=== PATIENT | male | born 1950 | race Caucasian/White ===

== ENCOUNTER 2017-06-09 05:33 | Outpatient (CLI) | payer MEDICARE ==
[~2017-06-09] VITALS: Ht 182.9 cm; Wt 118.4 kg
[~2017-06-09 05:33] MED LIST: ACHD5005 PO; ASPI-586 PO; HYDR1TAB PO; LEVO100T7 PO; LISI10TA2 PO; MULT-963 PO; ROSU10TA26 PO; UBID30CA13 PO; VITA100T6 PO
[2017-06-09] MEDS ORDERED: UBID30CA9 PO (14:32)
== END 2017-06-09 14:36 ==
LOC: PREOP 05:33
PROVIDERS: ATTEND Surgery
DX: Z01.818 Encounter for other preprocedural examination (principal); K21.9 Gastro-esophageal reflux disease without esophagitis

== ENCOUNTER 2017-07-28 05:54 | Outpatient (CLI) | payer MEDICARE ==
[~2017-07-28] VITALS: Ht 182.9 cm; Wt 118.4 kg
[~2017-07-28 05:54] MED LIST changes: +UBID30CA9 PO
[2017-07-28] MEDS ORDERED: LISI-552 PO (11:38)
[2017-07-28] MEDS ORDERED: GINK120C PO (11:38)
[2017-07-28] MEDS ORDERED: NF-ESOM40C PO (11:40)
== END 2017-07-28 11:41 ==
LOC: PREOP 05:54
PROVIDERS: ATTEND Surgery
DX: Z01.818 Encounter for other preprocedural examination (principal); K21.9 Gastro-esophageal reflux disease without esophagitis

== ENCOUNTER 2017-08-25 07:29 | Day surgery (SDC) | payer MEDICARE ==
[~2017-08-25] VITALS: Ht 182.9 cm; Wt 118.4 kg
[~2017-08-25 07:29] MED LIST changes: +GINK120C PO; +LISI-552 PO; +NF-ESOM40C PO
--- OUTSIDE RECORDS SUMMARY | 2017-08-25 07:32 | XMS REPORT ---
Author NURY Stein Organization [employer] Address Unknown Phone Unavailable Care Team Providers Care Lamp Wirer Name Role Phone NURY CHRISTOPHER CP Unavailable Allergies, Adverse Reactions, Alerts Substance Reaction Event Type N.K.D.A. Info Not Available Non Drug Allergy Problems Problem Type Condition Code Onset Dates Condition Status Problem Cerumen impaction H61.20 Active Problem ZOSTAVAX DX V05.8 Active Problem HTN (hypertension) I10 Active Assessment Hypothyroid E03.9 Active Assessment Hyperlipemia E78.5 Active Assessment HTN (hypertension) I10 Active Assessment Cerumen impaction H61.20 Active Medications Medication Code System Code Instructions Start Date End Date Status Dosage Lisinopril [facility] [address]-64 10 mg Orally Once a day August 04, [address] [facility] [address]-28 10 mg Orally Once a day August 08, [address] [facility] [address]-66 100 MCG Orally Once a day August 08, [address] [facility] 436[address]048 10 MG Orally Once a day 1 capsule with a meal Claritin [facility] [address]-48 10 MG Orally Once a day [address] [facility] [address]-05 6.5 % Otic at bedtime daily August 04, [address] [facility] [address]-33 81 MG Orally Once a day 1 tablet Procedures Procedure Coding System Code Date Office Visit, Est Pt., Level 4 CPT-4 10818 August 21, 2015 [facility] VISIT ESTABLISHED PATIENT CPT-4 G0467 August 21, 2015 Vital Signs Date/Time: August 21, 2015 Temperature 97.9 F Weight 261.0 lbs Height 72 in BMI 35.39 Index Blood Pressure Diastolic 85 mmHg Blood Pressure Systolic 155 mmHg Cardiac Monitoring Heart Rate 72 bpm Results No Known Results Summary Purpose [employer] Submission
--- OUTSIDE RECORDS SUMMARY | 2017-08-25 07:32 | XMS REPORT ---
Author Author DARIO COSTELLO [facility] Address [address] [place] [address] Care Team Providers Care Whanau Support Worker Name Role Phone DARIO COSTELLO Unavailable PROBLEMS Type Condition ICD9-CM Code [id number] Code Onset Dates Condition Status SNOMED Code Assessment Abdominal pain, left lower quadrant R10.32 Feb, Active 344556154 Problem Acquired hypothyroidism E03.9 Active 109193677 Problem Hyperlipemia E78.5 Active 56866937 Problem Wellness examination Z00.00 Active 770048945 Problem ZOSTAVAX DX V05.8 Active 99534584 Problem HTN (hypertension) I10 Active 95042313 Problem Cerumen impaction H61.20 Active 22573360 ALLERGIES Substance Reaction Event Type Date Status N.K.D.A. Unknown Non Drug Allergy Feb, Unknown SOCIAL HISTORY No smoking Hx information available PLAN OF CARE VITAL SIGNS Height 72 in 2016-03-20 Weight 257.3 lbs 2016-03-20 Heart Rate 72 bpm 2016-03-20 Respiratory Rate 18 2016-03-20 BMI 34.89 kg/m2 2016-03-20 Blood pressure systolic 138 mmHg 2016-03-20 Blood pressure diastolic 82 mmHg 2016-03-20 MEDICATIONS Medication Instructions Dosage Frequency Start Date End Date Duration Status Aspirin 81 MG Orally Once a day 1 tablet 24h Active Claritin 10 MG Orally Once a day 1 tablet 24h Active Crestor 10 mg Orally Once a day 1 tablet 24h 12 Jul, 2015 Active CoQ10 10 MG Orally Once a day 1 capsule with a meal 24h Active Cipro 500 MG Orally Twice a day 1 tablet 12h Feb, Mar, 10 day(s) Active Lisinopril 10 mg Orally Once a day 1 tablet 24h 30 Active Levothyroxine Sodium 100 MCG Orally Once a day 1 tablet 24h 12 Jul, 2015 Active RESULTS No Results PROCEDURES Procedure Date Ordered Related Diagnosis Body Site [facility] VISIT ESTABLISHED PATIENT Mar 20, 2016 Office Visit, Est Pt., Level 3 Mar 20, 2016 IMMUNIZATIONS No Known Immunizations
--- OUTSIDE RECORDS SUMMARY | 2017-08-25 07:32 | XMS REPORT ---
Author Author NURY CHRISTOPHER Organization [facility] Address [address] [place] [address] Care Team Providers Care Aircraft Pneudraulic Systems Mechanic Name Role Phone NURY CHRISTOPHER Unavailable PROBLEMS Type Condition ICD9-CM Code [id number] Code Onset Dates Condition Status SNOMED Code Problem Acquired hypothyroidism E03.9 Active 189776943 Problem Hyperlipemia E78.5 Active 52315266 Problem HTN (hypertension) I10 Active 85310563 Problem Cerumen impaction H61.20 Active 10669331 ALLERGIES Unknown Allergies SOCIAL HISTORY No smoking Hx information available PLAN OF CARE VITAL SIGNS MEDICATIONS Medication Instructions Dosage Frequency Start Date End Date Duration Status Levothyroxine Sodium 100 MCG Orally Once a day 1 tablet 24h Jul, 30 days Active Crestor 10 mg Orally Once a day 1 tablet 24h Jul, 30 days Active Lisinopril 10 mg Orally Once a day 1 tablet 24h 30 days Active RESULTS No Results PROCEDURES No Known procedures IMMUNIZATIONS No Known Immunizations
--- OUTSIDE RECORDS SUMMARY | 2017-08-25 07:32 | XMS REPORT ---
Author Author Mariel NURY [facility] Address [address] [place] [address] Care Team Providers Care Physiotherapist'S Assistant Name Role Phone kylieJONNATHAN NURY Unavailable PROBLEMS Type Condition ICD9-CM Code [id number] Code Onset Dates Condition Status SNOMED Code Problem HTN (hypertension) I10 Active 97528592 Problem Hypertension, benign I10 Active 61975227 Problem Dyslipidemia E78.5 Active 441592530 Problem Hyperlipemia E78.5 Active 67483591 Problem Cerumen impaction H61.20 Active 96294359 Problem Obesity (BMI 30-39.9) E66.9 Active 693910413 Problem Acquired hypothyroidism E03.9 Active 918052300 ALLERGIES No Information ENCOUNTERS Encounter Location Date Diagnosis [place] [id number] [place] [address] 14 May, 2017 [place] [id number] [place] [address] 62[address] 14 May, 2017 Acquired hypothyroidism E03.9 [facility] [id number] [place] [address]8532- [address] 13 May, 2017 Hypertension, benign I10 and Borderline diabetes R73.03 [facility] [id number] [place] [address] 82338- 300[address] 08 May, 2017 Hypertension, benign I10 and Borderline diabetes R73.03 [facility] [id number] [place] [address] 15666- 5639 18 Apr, 2017 [place] [id number] [place] [address] 0[address] 09 Apr, 2017 Seborrheic keratoses L82.1 [place] [address] [place] [address] Feb, Seborrheic keratoses L82.1 [facility] [address] [address] Feb, HTN (hypertension) I10 ; Obesity (BMI 30-39.9) E66.9 ; Dyslipidemia E78.5 ; Acquired hypothyroidism E03.9 and Benign neoplasm of skin of back D23.5 [facility] [address] [address] Jan, [facility] [address] [address] Jan, Acquired hypothyroidism E03.9 and Hyperlipemia E78.5 [place] [id number] [place] [address]2419- [address] Sep, Acquired hypothyroidism E03.9 and Hyperlipemia E78.5 [place] [address] [address] Sep, HTN (hypertension) I10 ; Acquired hypothyroidism E03.9 and Hyperlipemia E78.5 [place] [address] [address] August, HTN (hypertension) I10 [place] [id number] [place] [address] 86[address]- 6[address] Jul, Acquired hypothyroidism E03.9 ; HTN (hypertension) I10 and Hyperlipemia E78.5 [facility] [id number] [place] [address] 82562- [address] Jul, [facility] [address] [address] Apr, HTN (hypertension) I10 ; Acquired hypothyroidism E03.9 and Hyperlipemia E78.5 [facility] [id number] [place] [address]- [address] Mar, [facility] [address] [place] [address] Mar, [facility] [id number] [place] [address]- [address] Mar, Hyperlipemia E78.5 ; HTN (hypertension) I10 and Acquired hypothyroidism E03.9 [facility] [id number] [place] [address] Mar, HTN (hypertension) I10 [facility] [address] [address] Mar, [facility] [address] [address] Feb, Abdominal pain, left lower quadrant R10.32 [place] [id number] [place] [address] 64[address]- [address] Jan, HTN (hypertension) I10 ; Acquired hypothyroidism E03.9 ; Hyperlipemia E78.5 and Encounter for immunization Z23 [facility] [id number] [place] [address] Nov, Hypothyroid E03.9 [place] [id number] [place] [address]- [address] Oct, HTN (hypertension) I10 ; Acquired hypothyroidism E03.9 and Hyperlipemia E78.5 [place] [id number] [place] [address] 81665- [address] Jul, Cerumen impaction H61.20 [facility] [id number] [place] [address]- [address] Jul, HTN (hypertension) I10 ; Cerumen impaction H61.20 ; Hypothyroid E03.9 and Hyperlipemia E78.5 [facility] [id number] [place] [address]40- 60[address] Jul, Hypothyroid E03.9 and Hyperlipemia E78.5 [facility] [address], [place] [address] Jul, Wellness examination Z00.00 ; HTN (hypertension) I10 and Cerumen impaction H61.20 [facility]ALK IN [facility] [id number] [address] Jun, Blood pressure elevated I10 and Acute otitis externa of right ear, unspecified type H60.501 [facility] [id number] [address] Nov, [facility] [address] [facility] [id number] [address] Nov, IMMUNIZATIONS No Known Immunizations SOCIAL HISTORY Never Assessed REASON FOR VISIT Refill request PLAN OF CARE VITAL SIGNS MEDICATIONS Medication Instructions Dosage Frequency Start Date End Date Duration Status Crestor 10 mg Orally Once a day 1 tablet 24h 30 days Active Levothyroxine Sodium 100 MCG Orally Once a day 1 tablet 24h 30 Active RESULTS No Results PROCEDURES No Known procedures INSTRUCTIONS MEDICATIONS ADMINISTERED No Known Medications MEDICAL (GENERAL) HISTORY Type Description Date Medical History allergies Medical History HTN Medical History hypothyroidism Medical History hyperlipidemia Surgical History colon resection 2006 Surgical History hernia repair 2011 Surgical History hernia repair 2016 Hospitalization History surgeries
--- OUTSIDE RECORDS SUMMARY | 2017-08-25 07:32 | XMS REPORT ---
Author NURY Stein [facility] [employer] Address Unknown Phone Unavailable Care Team Providers Care Soda Room Operator Name Role Phone NURY CHRISTOPHER CP Unavailable Allergies No Known Allergies Problems Problem Type Condition Code Onset Dates Condition Status Problem Cerumen impaction H61.20 Active Problem Wellness examination Z00.00 Active Problem HTN (hypertension) I10 Active Problem ZOSTAVAX DX V05.8 Active Assessment Cerumen impaction H61.20 Active Medications No Known Medications Procedures Procedure Coding System Code Date EAR IRRIGATION CPT-4 56083 August 24, 2015 Results No Known Results Summary Purpose [employer]ClinicalWorks Submission
--- OUTSIDE RECORDS SUMMARY | 2017-08-25 07:32 | XMS REPORT ---
Author Author NURY CHRISTOPHER Organization [facility] Address [address] [place] [address] Care Team Providers Care Flight Attendant/Inflight Manager Name Role Phone NURY CHRISTOPHER Unavailable PROBLEMS Type Condition ICD9-CM Code [id number] Code Onset Dates Condition Status SNOMED Code Problem Acquired hypothyroidism E03.9 Active 217123017 Problem Hyperlipemia E78.5 Active 93598098 Problem HTN (hypertension) I10 Active 02648822 Problem Cerumen impaction H61.20 Active 98536961 ALLERGIES Unknown Allergies SOCIAL HISTORY No smoking Hx information available PLAN OF CARE VITAL SIGNS MEDICATIONS Medication Instructions Dosage Frequency Start Date End Date Duration Status Crestor 10 mg Orally Once a day 1 tablet 24h Jul, 30 days Active Levothyroxine Sodium 100 MCG Orally Once a day 1 tablet 24h Jul, 30 days Active Lisinopril 10 mg Orally Once a day 1 tablet 24h 30 days Active RESULTS No Results PROCEDURES No Known procedures IMMUNIZATIONS No Known Immunizations
--- OUTSIDE RECORDS SUMMARY | 2017-08-25 07:32 | XMS REPORT ---
Author Author NURY CHRISTOPHER [facility] Address [address] [place] [address] Care Team Providers Care Cctv Technician Name Role Phone NURY CHRISTOPHER Unavailable PROBLEMS Type Condition ICD9-CM Code [id number] Code Onset Dates Condition Status SNOMED Code Problem Acquired hypothyroidism E03.9 Active 625350728 Problem Hyperlipemia E78.5 Active 05785437 Problem HTN (hypertension) I10 Active 86689622 Problem Cerumen impaction H61.20 Active 39392849 ALLERGIES Unknown Allergies SOCIAL HISTORY No smoking Hx information available PLAN OF CARE VITAL SIGNS MEDICATIONS Unknown Medications RESULTS No Results PROCEDURES No Known procedures IMMUNIZATIONS No Known Immunizations
--- OUTSIDE RECORDS SUMMARY | 2017-08-25 07:32 | XMS REPORT ---
Author Author NURY CHRISTOPHER [facility] Address [address] [place] [address] Care Team Providers Care Capsule Maker Name Role Phone NURY CHRISTOPHER Unavailable PROBLEMS Type Condition ICD9-CM Code AZC26-PP Code Onset Dates Condition Status SNOMED Code Problem Acquired hypothyroidism E03.9 Active 506507223 Problem Hyperlipemia E78.5 Active 65677380 Problem Cerumen impaction H61.20 Active 78123194 Problem HTN (hypertension) I10 Active 55392560 ALLERGIES No Information SOCIAL HISTORY Never Assessed PLAN OF CARE VITAL SIGNS MEDICATIONS Medication Instructions Dosage Frequency Start Date End Date Duration Status Lisinopril 10 mg Orally Once a day 1 tablet 24h 90 days Active RESULTS No Results PROCEDURES No Known procedures IMMUNIZATIONS No Known Immunizations MEDICAL (GENERAL) HISTORY Type Description Date Medical History allergies Medical History HTN Medical History hypothyroidism Medical History hyperlipidemia Surgical History colon resection 2006 Surgical History hernia repair 2011 Surgical History hernia repair 2016 Hospitalization History surgeries
--- OUTSIDE RECORDS SUMMARY | 2017-08-25 07:32 | XMS REPORT ---
Author Author ASHWIN NURY Organization [facility] Address [address] [place] [address] Care Team Providers Care Kayak Maker Name Role Phone ANGELLA CHRISTOPHERE Unavailable PROBLEMS Type Condition ICD9-CM Code [id number] Code Onset Dates Condition Status SNOMED Code Problem Acquired hypothyroidism E03.9 Active 041303545 Problem Hyperlipemia E78.5 Active 41538437 Problem Cerumen impaction H61.20 Active 34613878 Problem HTN (hypertension) I10 Active 62272882 ALLERGIES Substance Reaction Event Type Date Status N.K.D.A. Unknown Non Drug Allergy Apr, Unknown SOCIAL HISTORY No smoking Hx information available PLAN OF CARE Activity Details Follow Up 3 Months, prn Reason:htn VITAL SIGNS Height 72 in 2016-05-15 Weight 261.1 lbs 2016-05-15 Temperature 97.9 degrees Fahrenheit 2016-05-15 Heart Rate 72 bpm 2016-05-15 Respiratory Rate 20 2016-05-15 BMI 35.41 kg/m2 2016-05-15 Blood pressure systolic 122 mmHg 2016-05-15 Blood pressure diastolic 74 mmHg 2016-05-15 MEDICATIONS Medication Instructions Dosage Frequency Start Date End Date Duration Status Aspirin 81 MG Orally Once a day 1 tablet 24h Active Levothyroxine Sodium 100 MCG Orally Once a day 1 tablet 24h Jul, 90 days Active CoQ10 10 MG Orally Once a day 1 capsule with a meal 24h Active Lisinopril 10 mg Orally Once a day 1 tablet 24h 90 days Active Crestor 10 mg Orally Once a day 1 tablet 24h Jul, 90 days Active Claritin 10 MG Orally Once a day 1 tablet 24h Active RESULTS No Results PROCEDURES Procedure Date Ordered Related Diagnosis Body Site [facility] VISIT ESTABLISHED PATIENT May 15, 2016 Office Visit, Est Pt., Level 4 May 15, 2016 IMMUNIZATIONS No Known Immunizations
--- OUTSIDE RECORDS SUMMARY | 2017-08-25 07:33 | XMS REPORT ---
Author NURY Stein [facility] eClinicalWorks Address Unknown Phone Unavailable Care Team Providers Care Warranty Administrator Name Role Phone NURY CHRISTOPHER CP Unavailable Allergies, Adverse Reactions, Alerts Substance Reaction Event Type N.K.D.A. Info Not Available Non Drug Allergy Problems Problem Type Condition Code Onset Dates Condition Status Assessment Encounter for immunization Z23 Active Assessment Acquired hypothyroidism E03.9 Active Assessment Hyperlipemia E78.5 Active Problem Hyperlipemia E78.5 Active Problem HTN (hypertension) I10 Active Problem Acquired hypothyroidism E03.9 Active Problem ZOSTAVAX DX V05.8 Active Assessment HTN (hypertension) I10 Active Problem Cerumen impaction H61.20 Active Problem Wellness examination Z00.00 Active Medications Medication Code System Code Instructions Start Date End Date Status Dosage Crestor [facility] [address]-32 10 mg Orally Once a day August 08, 2015 1 tablet CoQ10 [facility] [address]-74142 10 MG Orally Once a day 1 capsule with a meal Claritin [facility] NAMED [facility] [address]-24 10 MG Orally Once a day 1 tablet Aspirin [facility] NAMED [facility] [address]-02 81 MG Orally Once a day 1 tablet Levothyroxine Sodium [facility] NAMED [facility] [address]-42 100 MCG Orally Once a day August 08, 2015 1 tablet Lisinopril [facility] NAMED [facility] [address]-05 10 mg Orally Once a day 1 tablet Procedures Procedure Coding System Code Date Office Visit, Est Pt., Level 4 CPT-4 42764 Jan 29, 2016 FLUARIX QUAD P-FREE 3 AND UP .50 2015 CPT-4 03676 Jan 29, 2016 [facility] VISIT ESTABLISHED PATIENT CPT-4 G0467 Jan 29, 2016 SINGLE IMMUNIZATION ADMIN CPT-4 53608 Jan 29, 2016 Vital Signs Date/Time: Jan 29, 2016 Cardiac Monitoring Heart Rate 64 bpm Weight 253.8 lbs Height 72 in BMI 34.42 Index Blood Pressure Diastolic 78 mmHg Blood Pressure Systolic 138 mmHg Results No Known Results Immunizations Vaccine Administration Date FLUARIX QUAD P-FREE 3 AND UP .50 2015Jan 29, 2016 Summary Purpose eClinicalWorks Submission
--- OUTSIDE RECORDS SUMMARY | 2017-08-25 07:33 | XMS REPORT ---
Author Author NURY CHRISTOPHER [facility] Address [address] [place] [address] Care Team Providers Care Corner Former Name Role Phone NURY CHRISTOPHER Unavailable PROBLEMS Type Condition ICD9-CM Code NNN62-KD Code Onset Dates Condition Status SNOMED Code Problem Acquired hypothyroidism E03.9 Active 483561569 Problem Hyperlipemia E78.5 Active 67596871 Problem Wellness examination Z00.00 Active 900102939 Problem ZOSTAVAX DX V05.8 Active 12165865 Problem HTN (hypertension) I10 Active 88672375 Problem Cerumen impaction H61.20 Active 39457343 ALLERGIES Unknown Allergies SOCIAL HISTORY No smoking Hx information available PLAN OF CARE VITAL SIGNS MEDICATIONS Medication Instructions Dosage Frequency Start Date End Date Duration Status Atenolol 50 MG Orally Once a day 1 tablet 24h Mar, 30 day(s) Active RESULTS No Results PROCEDURES No Known procedures IMMUNIZATIONS No Known Immunizations
--- OUTSIDE RECORDS SUMMARY | 2017-08-25 07:33 | XMS REPORT ---
Author Author Mariel NURY Organization [facility] Address [address] [place] [address] Care Team Providers Care Waste Transportation Technician Name Role Phone Mariel NURY Unavailable PROBLEMS Type Condition ICD9-CM Code PHY35-MR Code Onset Dates Condition Status SNOMED Code Problem HTN (hypertension) I10 Active 39740157 Problem Hypertension, benign I10 Active 26591255 Problem Dyslipidemia E78.5 Active 266543265 Problem Hyperlipemia E78.5 Active 65096436 Problem Cerumen impaction H61.20 Active 77827507 Problem Obesity (BMI 30-39.9) E66.9 Active 842064830 Problem Acquired hypothyroidism E03.9 Active 838093092 ALLERGIES No Known Allergies ENCOUNTERS Encounter Location Date Diagnosis [place] [id number] [place] [address] 26159- 8400 14 May, 2017 [place] [phone] [place] [address] 05923- 1699 14 May, 2017 Acquired hypothyroidism E03.9 [facility] [id number] [place] [address] 12067- 8527 13 May, 2017 Hypertension, benign I10 and Borderline diabetes R73.03 [facility] [id number] [place] [address] 45261- 0213 08 May, 2017 Hypertension, benign I10 and Borderline diabetes R73.03 [place] [phone] [place] [address] 00928- [phone] 18 Apr, 2017 [place] [phone] [place] [address] 55946- 8215 09 Apr, 2017 Seborrheic keratoses L82.1 [place] [address] [place] [address] Feb, Seborrheic keratoses L82.1 [facility] [phone] [place] [address] 47917- 6053 Feb, HTN (hypertension) I10 ; Obesity (BMI 30-39.9) E66.9 ; Dyslipidemia E78.5 ; Acquired hypothyroidism E03.9 and Benign neoplasm of skin of back D23.5 [facility] [id number] [place] [address] 09824- 4582 Jan, [facility] [id number] [place] [address] 36701- 0089 Jan, Acquired hypothyroidism E03.9 and Hyperlipemia E78.5 [place] [id number] [place] [address] 21843- 0333 Sep, Acquired hypothyroidism E03.9 and Hyperlipemia E78.5 [place] [id number] [place] [address] 55560- 5317 Sep, HTN (hypertension) I10 ; Acquired hypothyroidism E03.9 and Hyperlipemia E78.5 [place] [id number] [place] [address] 48931- 1631 August, HTN (hypertension) I10 [place] [phone] [place] [address] 05032- 2547 Jul, Acquired hypothyroidism E03.9 ; HTN (hypertension) I10 and Hyperlipemia E78.5 [facility] [id number] [place] [address] 26932- 4725 Jul, [facility] [phone] [place] [address] 25357- 3726 Apr, HTN (hypertension) I10 ; Acquired hypothyroidism E03.9 and Hyperlipemia E78.5 [facility] [phone] [place] [address] 53177- 1996 Mar, [facility] [id number] [place] [address] 21683- 4486 Mar, [facility] [phone] [place] [address] 35492- 6368 Mar, Hyperlipemia E78.5 ; HTN (hypertension) I10 and Acquired hypothyroidism E03.9 [facility] [phone] [place] [address] 62217- 2830 Mar, HTN (hypertension) I10 [facility] [address] [address]- 4468 Mar, [place] [address] [address]- 0517 Feb, Abdominal pain, left lower quadrant R10.32 [place] [phone] [place] [address] 93623- 5828 Jan, HTN (hypertension) I10 ; Acquired hypothyroidism E03.9 ; Hyperlipemia E78.5 and Encounter for immunization Z23 [facility] [phone] [place] [address] 32996- 4025 Nov, Hypothyroid E03.9 [place] [phone] [place] [address] 68565- 6373 Oct, HTN (hypertension) I10 ; Acquired hypothyroidism E03.9 and Hyperlipemia E78.5 [place] [phone] [place] [address] 53631- 3895 Jul, Cerumen impaction H61.20 [place] [phone] [place] [address] 24783- 0798 Jul, HTN (hypertension) I10 ; Cerumen impaction H61.20 ; Hypothyroid E03.9 and Hyperlipemia E78.5 [place] [phone] [place] [address] 94197- 0905 Jul, Hypothyroid E03.9 and Hyperlipemia E78.5 [place] [address] [place] [address] 0[address] 08 Jul, 2015 Wellness examination Z00.00 ; HTN (hypertension) I10 and Cerumen impaction H61.20 [facility] [address] [facility] [id number] [place] [address] Jun, Blood pressure elevated I10 and Acute otitis externa of right ear, unspecified type H60.501 [facility] [address] [facility] [id number] [address] Nov, [facility] [address] [facility] [id number], [place] [address] Nov, IMMUNIZATIONS No Known Immunizations SOCIAL HISTORY Never Assessed REASON FOR VISIT Blood Pressure. KBoleRN PLAN OF CARE Activity Details Follow Up 3 Months Reason:htn hypo thyroid VITAL SIGNS Height 72 in 2016-10-03 Weight 266.8 lbs 2016-10-03 Temperature 97.9 degrees Fahrenheit 2016-10-03 Heart Rate 80 bpm 2016-10-03 Respiratory Rate 20 2016-10-03 BMI 36.18 kg/m2 2016-10-03 Blood pressure systolic 126 mmHg 2016-10-03 Blood pressure diastolic 84 mmHg 2016-10-03 MEDICATIONS Medication Instructions Dosage Frequency Start Date End Date Duration Status Claritin-D 12 Hour 5-120 MG Orally every 12 hrs 1 tablet as needed 12h Jul, Active Aspirin 81 MG Orally Once a day 1 tablet 24h Active Claritin 10 MG Orally Once a day 1 tablet 24h Active Lisinopril 10 mg Orally Once a day 1 tablet 24h Active CoQ10 10 MG Orally Once a day 1 capsule with a meal 24h Active Ginkgo Biloba Complex Active Levothyroxine Sodium 100 MCG Orally Once a day 1 tablet 24h 30 Active Crestor 10 mg Orally Once a day 1 tablet 24h Active RESULTS No Results PROCEDURES Procedure Date Ordered Result Body Site [facility] VISIT ESTABLISHED PATIENT October 03, 2016 INSTRUCTIONS MEDICATIONS ADMINISTERED No Known Medications MEDICAL (GENERAL) HISTORY Type Description Date Medical History allergies Medical History HTN Medical History hypothyroidism Medical History hyperlipidemia Surgical History colon resection 2005 Surgical History hernia repair 2010 Surgical History hernia repair 2016 Hospitalization History surgeries
--- OUTSIDE RECORDS SUMMARY | 2017-08-25 07:33 | XMS REPORT | Continuity of Care Document ---
Author Author [facility] Address Unknown Phone Unavailable Allergies Active Description Code Type Severity Reaction Onset Reported/Identified Relationship to Patient Clinical Status Yes No Known Drug Allergies [id number] Drug Allergy Unknown N/A 07/28/2017 Medications There is no data. Problems Date Dx Coded Attending Type Code Diagnosis Diagnosed By 03/02/2012 Ot 211.3 BENIGN NEOPLASM LG BOWEL 03/02/2012 Ot 562.10 DIVERTICULOSIS COLON (W/O MENT OF HEMORR 03/02/2012 Ot V16.0 FAMILY HX-GI MALIGNANCY 03/02/2012 Ot V58.66 LONG-TERM ( CURRENT) USE OF ASPIRIN 03/02/2012 Ot V76.51 SCREEN MAL NEOP-COLON 03/12/2012 Ot 553.20 VENTRAL HERNIA NOS 12/17/2013 MARCO MURRIETA DO V05.8 ZOSTAVAX DX 06/26/2015 Ot V72.84 06/26/2015 Ot 553.20 06/26/2015 Ot V72.63 06/26/2015 Ot V74.8 07/03/2015 AIDE ELIAS, NISHA Fowler Ot K57.90 DVRTCLOS OF INTEST, PART UNSP, W/O PERF 07/03/2015 AIDE ELIAS, NISHA Fowler Ot K63.5 POLYP OF COLON 07/03/2015 AIDE ELIAS, NISHA Fowler Ot Z09 ENCNTR FOR F/U EXAM AFT TRTMT FOR COND O 04/04/2016 Ot V72.84 EXAM PRE- OPERATIVE NOS 04/04/2016 Ot 553.20 VENTRAL HERNIA NOS 04/04/2016 Ot V72.63 PRE- PROCEDURAL LABORATORY EXAMINATION 04/04/2016 Ot V74.8 SCREEN- BACTERIAL DIS NEC 04/04/2016 AIDE ELIAS, NISHA Fowler Ot Z01.818 ENCOUNTER FOR OTHER PREPROCEDURAL EXAMIN 04/04/2016 AIDE ELIAS, NISHA Fowler Ot Z86.010 PERSONAL HISTORY OF COLONIC POLYPS 04/05/2016 NISHA NOBLE MD Ot K40.90 UNIL INGUINAL HERNIA, W/O OBST OR GANGR, 04/05/2016 AIDE ELIAS, NISHA Fowler Ot Z01.812 ENCOUNTER FOR PREPROCEDURAL LABORATORY E 04/05/2016 NISHA NOBLE MD Ot Z11.2 ENCOUNTER FOR SCREENING FOR OTHER BACTER 04/08/2016 Ot V72.84 EXAM PRE- OPERATIVE NOS 04/08/2016 Ot 553.20 VENTRAL HERNIA NOS 04/08/2016 Ot V72.63 PRE- PROCEDURAL LABORATORY EXAMINATION 04/08/2016 Ot V74.8 SCREEN- BACTERIAL DIS NEC 04/08/2016 AIDE ELIAS, NISHA Fowler Ot Z01.818 ENCOUNTER FOR OTHER PREPROCEDURAL EXAMIN 04/08/2016 NISHA NOBLE MD Ot Z86.010 PERSONAL HISTORY OF COLONIC POLYPS 04/08/2016 NISHA NOBLE MD Ot K40.90 UNIL INGUINAL HERNIA, W/O OBST OR GANGR, 04/08/2016 NISHA NOBLE MD Ot Z01.812 ENCOUNTER FOR PREPROCEDURAL LABORATORY E 04/08/2016 NISHA NOBLE MD Ot Z11.2 ENCOUNTER FOR SCREENING FOR OTHER BACTER 04/09/2016 NISHA NOBLE MD Ot D69.6 THROMBOCYTOPENIA, UNSPECIFIED 04/09/2016 NISHA NOBLE MD Ot R53.83 OTHER FATIGUE 04/11/2016 NISHA NOBLE MD Ot K40.90 UNIL INGUINAL HERNIA, W/O OBST OR GANGR, 04/11/2016 NISHA NOBLE MD Ot Z53.8 PROCEDURE AND TREATMENT NOT CARRIED OUT 04/15/2016 NISHA NOBLE MD Ot K40.90 UNIL INGUINAL HERNIA, W/O OBST OR GANGR, 04/15/2016 NISHA NOBLE MD Ot Z53.8 PROCEDURE AND TREATMENT NOT CARRIED OUT 04/16/2016 NISHA NOBLE MD Ot 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 04/16/2016 NISHA NOBLE MD Ot K40.90 UNIL INGUINAL HERNIA, W/O OBST OR GANGR, 04/25/2016 NISHA NOBLE MD Ot 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 04/25/2016 NISHA NOBLE MD Ot K40.90 UNIL INGUINAL HERNIA, W/O OBST OR GANGR, 04/26/2016 NISHA NOBLE MD, Ot K40.90 UNIL INGUINAL HERNIA, W/O OBST OR GANGR, 04/26/2016 NISHA NOBLE MD Ot Z01.812 ENCOUNTER FOR PREPROCEDURAL LABORATORY E 04/26/2016 NISHA NOBLE MD, Ot Z11.2 ENCOUNTER FOR SCREENING FOR OTHER BACTER 04/30/2016 NISHA NOBLE MD, Ot K40.90 UNIL INGUINAL HERNIA, W/O OBST OR GANGR, 04/30/2016 NISHA NOBLE MD, Ot Z53.8 PROCEDURE AND TREATMENT NOT CARRIED OUT 05/06/2016 NISHA NOBLE MD, Ot K40.90 UNIL INGUINAL HERNIA, W/O OBST OR GANGR, 05/06/2016 NISHA NOBLE MD, Ot Z53.8 PROCEDURE AND TREATMENT NOT CARRIED OUT 05/07/2016 NISHA NOBLE MD, Ot D69.6 THROMBOCYTOPENIA, UNSPECIFIED 05/07/2016 NISHA NOBLE MD Ot R53.83 OTHER FATIGUE 06/11/2017 NISHA NOBLE MD Ot K21.9 GASTRO-ESOPHAGEAL REFLUX DISEASE WITHOUT 06/11/2017 NISHA NOBLE MD Ot Z01.818 ENCOUNTER FOR OTHER PREPROCEDURAL EXAMIN 07/29/2017 NISHA NOBLE MD, Ot K21.9 GASTRO-ESOPHAGEAL REFLUX DISEASE WITHOUT 07/29/2017 NISHA ONBLE MD Ot Z01.818 ENCOUNTER FOR OTHER PREPROCEDURAL EXAMIN Procedures There is no data. Results Test Result Range Complete blood count (CBC) with automated white blood cell (WBC) differential - 04/04/16 12:45 Blood leukocytes automated count (number/volume) 6.0 10*3/uL 4.3-11.0 Blood erythrocytes automated count (number/volume) 4.13 10*6/uL 4.35-5.85 Venous blood hemoglobin measurement (mass/volume) 13.0 g/dL 13.3-17.7 Blood hematocrit (volume fraction) 37 % 40-54 Automated erythrocyte mean corpuscular volume 89 [foz_us] 80-99 Automated erythrocyte mean corpuscular hemoglobin (mass per erythrocyte) 32 pg 25-34 Automated erythrocyte mean corpuscular hemoglobin concentration measurement ( mass/volume) 35 g/dL 32-36 Automated erythrocyte distribution width ratio 11.9 % 10.0-14.5 Automated blood platelet count (count/volume) 81 10*3/uL 130-400 Automated blood platelet mean volume measurement 12.0 [foz_us] 7.4-10.4 Automated blood neutrophils/100 leukocytes 66 % 42-75 Automated blood lymphocytes/100 leukocytes 21 % 12-44 Blood monocytes/100 leukocytes 12 % 0-12 Automated blood eosinophils/100 leukocytes 1 % 0-10 Automated blood basophils/100 leukocytes 0 % 0-10 Blood neutrophils automated count (number/volume) 3.9 10*3 1.8-7.8 Blood lymphocytes automated count (number/volume) 1.3 10*3 1.0-4.0 Blood monocytes automated count (number/volume) 0.7 10*3 0.0-1.0 Automated eosinophil count 0.1 10*3/uL 0.0-0.3 Automated blood basophil count (count/volume) 0.0 10*3/uL 0.0-0.1 Methicillin resistant Staphylococcus aureus (MRSA) screening culture - 12:50 Methicillin resistant Staphylococcus aureus (MRSA) screening culture NEG NRG Automated blood complete blood count (hemogram) panel - 04/10/16 11:16 Blood leukocytes automated count (number/volume) 5.3 10*3/uL 4.3-11.0 Blood erythrocytes automated count (number/volume) 4.15 10*6/uL 4.35-5.85 Venous blood hemoglobin measurement (mass/volume) 13.2 g/dL 13.3-17.7 Blood hematocrit (volume fraction) 38 % 40-54 Automated erythrocyte mean corpuscular volume 91 [foz_us] 80-99 Automated erythrocyte mean corpuscular hemoglobin (mass per erythrocyte) 32 pg 25-34 Automated erythrocyte mean corpuscular hemoglobin concentration measurement ( mass/volume) 35 g/dL 32-36 Automated erythrocyte distribution width ratio 12.1 % 10.0-14.5 Automated blood platelet count (count/volume) 153 10*3/uL 130-400 Automated blood platelet mean volume measurement 10.5 [foz_us] 7.4-10.4 PLATELET ESTIMATION - 06/10/17 08:12 CBC MORPHOLOGY - 06/10/17 08:12 CBC MORPHOLOGY NORMAL Encounters ACCT No. Visit Date/Time Discharge Status Pt. Type Provider Facility Loc./Unit Complaint [id number] 12/17/2013 09:20:00 12/17/2013 23:59:59 CLS Outpatient MARCO MURRIETA DO [id number] 07/28/2017 05:54:00 07/28/2017 11:41:00 DIS Outpatient NISHA NOBLE MD [facility] PREOP EGD [id number] 06/09/2017 05:33:00 06/09/2017 14:36:00 DIS Outpatient NISHA NOBLE MD [facility] PREOP EGD [id number] 05/12/2017 09:30:00 05/12/2017 23:59:59 CLS Preadmit NISHA NOBLE MD [facility] ENDO GERD [id number] 04/16/2016 06:27:00 04/16/2016 13:34:00 DIS Outpatient NISHA NOBLE MD [facility] LEFT INGUINAL HERNIA [id number] 04/10/2016 11:03:00 04/10/2016 23:59:59 CLS Outpatient NISHA NOBLE MD [facility] LEFT INGUINAL HERNIA [id number] 04/08/2016 09:42:00 04/08/2016 23:59:59 CLS Outpatient NISHA NOBLE MD [facility] LAB PLATELET COUNT, FATIGUE [id number] 04/04/2016 11:54:00 04/04/2016 23:59:59 CLS Outpatient NISHA NOBLE MD [facility] PREOP LEFT INGUINAL HERNIA [id number] 07/03/2015 06:51:00 07/03/2015 09:30:00 DIS Outpatient NISHA NOBLE MD [facility] HX POLPYS [id number] 06/26/2015 05:40:00 06/26/2015 23:59:59 CLS Outpatient NISHA NOBLE MD [facility] PREOP HX POLPS [id number] 04/04/2016 12:13:00 Document Registration [id number] 03/11/2012 08:23:00 Document Registration [id number] 03/05/2012 08:28:00 Document Registration [id number] 03/02/2012 11:00:00 Document Registration [id number] 02/26/2012 07:46:00 Document Registration [id number] 06/10/2017 08:20:00 06/10/2017 23:59:59 [facility] Outpatient ERICKA LEMA APRN [facility] [id number] 06/10/2017 08:20:00 Document Registration
--- OUTSIDE RECORDS SUMMARY | 2017-08-25 07:33 | XMS REPORT ---
Author Author NURY CHRISTOPHER Organization [facility] Address [address] [place] [address] Care Team Providers Care Bleacher Pulp Name Role Phone NURY CHRISTOPHER Unavailable PROBLEMS Type Condition ICD9-CM Code MQI73-AM Code Onset Dates Condition Status SNOMED Code Problem Acquired hypothyroidism E03.9 Active 907917985 Problem Hyperlipemia E78.5 Active 76578292 Problem HTN (hypertension) I10 Active 71660303 Problem Cerumen impaction H61.20 Active 18524727 ALLERGIES Unknown Allergies SOCIAL HISTORY No smoking Hx information available PLAN OF CARE VITAL SIGNS MEDICATIONS Medication Instructions Dosage Frequency Start Date End Date Duration Status Lisinopril 10 mg Orally Once a day 1 tablet 24h 30 days Active Levothyroxine Sodium 100 MCG Orally Once a day 1 tablet 24h Jul, Active Crestor 10 mg Orally Once a day 1 tablet 24h Jul, Active RESULTS No Results PROCEDURES No Known procedures IMMUNIZATIONS No Known Immunizations
[2017-08-25] MEDS ORDERED: NS IV 500 ML 500 ML ONE (07:39)
[2017-08-25] MEDS ORDERED: NS IV 500 ML 500 ML IV PRN (07:42)
[2017-08-25] MEDS ORDERED: HURRICAINE EXT TUBE (BENZOCAINE) XX PRN (07:45)
[2017-08-25 07:57] VITALS: BP 154/85
[2017-08-25] MEDS ORDERED: fentaNYL INJECTION 100 MCG/2 ML AMP ONE (07:59)
[2017-08-25] MEDS ORDERED: MIDAZOLAM 2 MG/2 ML (VERSED) VIAL ONE ×4 (07:59→08:00)
[2017-08-25] MEDS ORDERED: HURRICAINE EXT TUBE (BENZOCAINE) ONE (08:00)
--- NOTE | 2017-08-25 08:34 | History & Physicial ---
History of Present Illness History of Present Illness Reason for visit/HPI to undergo an upper endoscopy, regarding symptoms of reflux disease. Denies dysphagia. Date of Admission 08/25/17 Date Seen by Provider: Aug 25, 2017 Time Seen by Provider: 08:31 I consulted on this patient on 08/25/17 08:30 Attending Physician Nisha Noble MD Admitting Physician No,Local Physician Consult Allergies and Home Medications Allergies Coded Allergies: No Known Drug Allergies (Unverified , 07/28/17) Home Medications Aspirin 81 Mg Tablet.dr, 81 MG PO DAILY, (Reported) Esomeprazole Magnesium 40 Mg Cap, 40 MG PO DAILY, (Reported) Ginkgo Biloba Extract 120 Mg Capsule, 120 MG PO BID, (Reported) Levothyroxine Sodium 100 Mcg Tablet, 100 MCG PO DAILY, (Reported) Lisinopril 20 Mg Tablet, 20 MG PO DAILY, (Reported) Rosuvastatin Calcium 10 Mg Tablet, 10 MG PO DAILY, (Reported) Ubidecarenone 30 Mg Capsule, 30 MG PO DAILY, (Reported) Patient Home Medication List Home Medication List Reviewed: Yes Past Umkktvs-Ntrxlp-Csmmva Hx Patient Social History Marrital Status: Employed/Student: employed Alcohol Use: Occasionally Uses Number of Drinks Today: 0 Alcohol Beverage of Choice: Wine Recreational Drug Use: No Smoking Status: Never a Smoker Recent Foreign Travel: No Contact w/other who traveled: No Recent Hopitalizations: No Recent Infectious Disease Expo: No Immunizations Up To Date Date of Pneumonia Vaccine: Nov 10, 2015 Date of Influenza Vaccine: Feb 13, 2017 Seasonal Allergies Seasonal Allergies: Yes Surgeries Yes Respiratory No Cardiovascular Yes High Cholesterol, Hypertension Reproductive System Hx Reproductive Disorders: No Sexually Transmitted Disease: No HIV/AIDS: No Gastrointestinal Yes Gastroesophageal Reflux, Polyps Endocrine History of Endocrine Disorders: Yes Endocrine Disorders: Hypothyroidsim HEENT Loss of Vision: Bilateral Hearing Impairment: Denies Blood Transfusions Adverse Reaction to a Blood Tr: No (N/A) Constitutional: no symptoms reported EENTM: no symptoms reported Respiratory: no symptoms reported Cardiovascular: no symptoms reported Gastrointestinal: no symptoms reported, see HPI Musculoskeletal: no symptoms reported Skin: no symptoms reported Psychiatric/Neurological: No Symptoms Reported Physical Exam Vital Signs Vital Signs - First Documented 08/25/17 07:57 Temp 98.4 Pulse 58 Resp 16 B/P (MAP) 154/85 (108) Pulse Ox 97 O2 Delivery Room Air Capillary Refill : General Appearance: No Apparent Distress Neck: Normal Inspection Respiratory: Lungs Clear Cardiovascular: Regular Rate, Rhythm Gastrointestinal: Non Tender, Soft Back: Normal Inspection Extremity: Normal Inspection Neurologic/Psychiatric: Alert, Oriented x3 Skin: Warm/Dry Assessment/Plan Assessment and Plan gentleman with atypical and minor symptoms of GERD. 4 upper endoscopy Admission Diagnosis Admission Status: Other (Outpt Proc) NISHA NOBLE MD Aug 25, 2017 8:34 am
--- NOTE | 2017-08-25 08:35 | Conscious Sedation/ASA ---
Conscious Sedation Pre-Proced Time Reviewed: 07:55 ASA Class: 2 Airway Mallampati Classification: (jackson appropriate class) I. II. III, IV Lungs Heart ASA score ASA 1: a normal healthy patient ASA 2: a patient with a mild systemic disease (mid diabetes, controlled hypertension, obesity ASA 3: a patient with a severe systemic disease that limits activity (angina , COPD, prior Myocardial infarction) ASA 4: a patient with an incapacitating disease that is a constant threat to life (CHF, renal failure) ASA 5: a moribund patient not expected to survive 24 hrs. (ruptured aneurysm) ASA 6: a declared brain patient whose organs are being harvested. For emergent operations, add the letter E after the classification Grade 1 Sedation Plan: Discussed options with patient/fam Note The patient is an appropriate candidate to undergo the planned procedure, sedation, and anesthesia. The patient immediately re-assessed prior to indication. NISHA NOBLE MD Aug 25, 2017 8:35 am
[2017-08-25] MEDS: fentaNYL INJECTION 100 MCG/2 ML AMP IVP PRN ×2 (08:42→08:44)
[2017-08-25] MEDS: MIDAZOLAM 2 MG/2 ML (VERSED) VIAL IVP PRN ×2 (08:43→08:45)
--- NOTE | 2017-08-25 09:19 | Endo Procedure Record ---
Endo Procedure Report Date of Procedure Last Colonoscopy: Yes (2014) Aug 25, 2017 Surgeon (s) NISHA NOBLE MD Post Procedure/Op Diagnosis Grade 1 esophagitis Procedure Performed Upper GI endoscopy with antral biopsy for H. pylori Description of Procedure Anesthesia Type: Conscious Sedation Specimen(s) collected/removed antral mucosa for H. pylori Description of the Procedure Indication for the procedure: This gentleman came in for an endoscopic assessment of symptoms of reflux disease. Informed consent was obtained after reviewing the superior in detail. Description of procedure: He was placed in left lateral position and his vital signs were monitored. Conscious sedation was achieved using Versed and fentanyl. The flexible gastroscope was then introduced down the esophagus, past the stomach, into the proximal duodenum. Findings: Esophagus: A short hiatal hernia with grade 1 esophagitis. Stomach and duodenum were normal. An antral biopsy was obtained for Helicobacter status. He tolerated the procedure well and was taken back to the nursing area in a stable condition. Impression: Symptoms of reflux disease. Mild esophagitis. Recommend continuing proton pump inhibitors. Copies To: MARCO MURRIETA XAVIER M MD Aug 25, 2017 9:19 am
--- NOTE | 2017-08-25 09:20 | Discharge Inst-Simple/Standard ---
Discharge Inst-Standard Discharge Medications New, Converted or Re-Newed RX: Other Patient Instructions/Follow Up Plan of Care/Instructions/FU: F/U PRN Activity as Tolerated: Yes Discharge Diet: No Restrictions NISHA NOBLE MD Aug 25, 2017 9:20 am
[2017-08-25 09:25] VITALS: BP 114/60
[2017-08-25 09:50] VITALS: BP 130/70
[2017-08-25 10:15] VITALS: BP 130/70
== END 2017-08-25 10:15 | disposition home or self-care (01) ==
LOC: ENDO 07:29
PROVIDERS: ATTEND Surgery
DX: K21.0 Gastro-esophageal reflux disease with esophagitis (principal); Z86.010 Personal history of colon polyps; E03.9 Hypothyroidism, unspecified; E78.00 Pure hypercholesterolemia, unspecified; I10 Essential (primary) hypertension; Z79.899 Other long term (current) drug therapy
CPT/HCPCS: 88305

== ENCOUNTER 2018-06-22 05:41 | Outpatient (CLI) | payer MEDICARE ==
[~2018-06-22] VITALS: Ht 182.9 cm; Wt 113.4 kg
[~2018-06-22 05:41] MED LIST changes: -ROSU10TA26 PO; +ROSU10TA27 PO
[2018-06-22] MEDS ORDERED: LORA10TA76 PO (13:24)
== END 2018-06-22 13:26 ==
LOC: PREOP 05:41
PROVIDERS: ATTEND Surgery
DX: Z01.818 Encounter for other preprocedural examination (principal)

== ENCOUNTER 2018-06-29 06:59 | Day surgery (SDC) | payer MEDICARE ==
[~2018-06-29] VITALS: Ht 182.9 cm; Wt 113.4 kg
[~2018-06-29 06:59] MED LIST changes: +LORA10TA76 PO
[2018-06-29] MEDS ORDERED: NS IV 500 ML 500 ML ONE (07:14)
[2018-06-29] MEDS ORDERED: MIDAZOLAM 2 MG/2 ML (VERSED) VIAL ONE ×3 (07:35)
[2018-06-29] MEDS ORDERED: fentaNYL INJECTION 100 MCG/2 ML AMP ONE (07:35)
[2018-06-29] MEDS ORDERED: NS IV 500 ML 500 ML IV PRN (07:43)
[2018-06-29] MEDS ORDERED: fentaNYL INJECTION 100 MCG/2 ML AMP IVP ONE (07:45)
[2018-06-29] MEDS ORDERED: MIDAZOLAM 2 MG/2 ML (VERSED) VIAL IVP ONE (07:45)
[2018-06-29 07:46] VITALS: BP 151/89
--- NOTE | 2018-06-29 08:32 | History & Physicial ---
History of Present Illness History of Present Illness Reason for visit/HPI for surveillance colonoscopy. Personal history of adenomatous polyps Date of Admission 06/29/18 Date Seen by a Provider: Jun 29, 2018 Time Seen by a Provider: 08:30 I consulted on this patient on 06/29/18 08:30 Attending Physician Nisha Noble MD Admitting Physician [facility] Consult Allergies and Home Medications Allergies Coded Allergies: No Known Drug Allergies (Unverified , 06/22/18) Home Medications Aspirin 81 Mg Tablet.dr, 81 MG PO DAILY, (Reported) Esomeprazole Magnesium 40 Mg Cap, 40 MG PO DAILY, (Reported) Ginkgo Biloba Extract 120 Mg Capsule, 120 MG PO BID, (Reported) Levothyroxine Sodium 100 Mcg Tablet, 100 MCG PO DAILY, (Reported) Lisinopril 20 Mg Tablet, 20 MG PO DAILY, (Reported) Loratadine 10 Mg Tablet, 10 MG PO DAILY, (Reported) Rosuvastatin Calcium 10 Mg Tablet, 10 MG PO DAILY, (Reported) Ubidecarenone 30 Mg Capsule, 30 MG PO DAILY, (Reported) Patient Home Medication List Home Medication List Reviewed: Yes Past Sipisrc-Nanyqu-Dsiysr Hx Patient Social History Marrital Status: Employed/Student: retired Alcohol Use: Denies Use Number of Drinks Today: HH Alcohol Beverage of Choice: Wine Recreational Drug Use: No Recent Foreign Travel: No Contact w/other who traveled: No Recent Hopitalizations: No Immunizations Up To Date Date of Pneumonia Vaccine: Nov 10, 2015 Date of Influenza Vaccine: Feb 02, 2018 Seasonal Allergies Seasonal Allergies: Yes Surgeries Yes (COLON RESECTION, HERNIA REPAIR) Respiratory No Cardiovascular Yes High Cholesterol, Hypertension Neurological No Reproductive System Hx Reproductive Disorders: No Sexually Transmitted Disease: No HIV/AIDS: No Genitourinary No Gastrointestinal Yes Gastroesophageal Reflux, Polyps Musculoskeletal No Endocrine History of Endocrine Disorders: Yes Endocrine Disorders: Hypothyroidsim HEENT History of HEENT Disorders: Yes (GLASSES) Loss of Vision: Bilateral Hearing Impairment: Denies Cancer No Psychosocial History of Psychiatric Problem: No Integumentary History of Skin or Integumenta: Yes (ROSACIA) Blood Transfusions History of Blood Disorders: No Adverse Reaction to a Blood Tr: No (N/A) Review of Systems Constitutional: no symptoms reported EENTM: no symptoms reported Respiratory: no symptoms reported Cardiovascular: no symptoms reported Gastrointestinal: no symptoms reported Genitourinary: no symptoms reported Musculoskeletal: no symptoms reported Skin: no symptoms reported Psychiatric/Neurological: No Symptoms Reported Physical Exam Vital Signs Vital Signs - First Documented 06/29/18 07:46 Temp 97.3 Pulse 69 Resp 20 B/P (MAP) 151/89 (109) Pulse Ox 97 O2 Delivery Room Air Capillary Refill : Height, Weight, BMI Height: 6'0.00" Weight: 250lbs. 0.0oz. [id number]; 33.9 BMI Method: General Appearance: No Apparent Distress Neck: Normal Inspection Gastrointestinal: Non Tender, Soft Rectal: Deferred Neurologic/Psychiatric: Oriented x3 Skin: Warm/Dry Assessment/Plan Assessment and Plan gentleman with a personal history of adenomatous polyps. For surveillance colonoscopy. Discussed in detail. Admission Diagnosis Admission Status: Other (Outpt Proc) NISHA NOBLE MD Jun 29, 2018 08:32
--- NOTE | 2018-06-29 08:33 | Conscious Sedation/ASA ---
Conscious Sedation Pre-Proced Time 08:32 ASA Score 2 For ASA 3 and 4: Consider anesthesia and medical clearance. Also, for patients with a history of failed moderate sedation consider anesthesia. Airway Lungs Heart ASA score ASA 1: a normal healthy patient ASA 2: a patient with a mild systemic disease (mid diabetes, controlled hypertension, obesity ASA 3: a patient with a severe systemic disease that limits activity (angina , COPD, prior Myocardial infarction) ASA 4: a patient with an incapacitating disease that is a constant threat to life (CHF, renal failure) ASA 5: a moribund patient not expected to survive 24 hrs. (ruptured aneurysm) ASA 6: a declared brain- patient whose organs are being harvested. For emergent operations, add the letter E after the classification Mallampati Classification Grade 1 Sedation Plan Discussed options with patient/fam The patient is an appropriate candidate to undergo the planned procedure, sedation, and anesthesia. The patient immediately re-assessed prior to indication. NISHA NOBLE MD Jun 29, 2018 08:33
[2018-06-29 09:05] VITALS: BP 133/72
--- NOTE | 2018-06-29 09:20 | Endo Procedure Record ---
Endo Procedure Report Date of Procedure Last Colonoscopy: Yes (2014) Jun 29, 2018 Surgeon (s) NISHA NOBLE MD Post Procedure/Op Diagnosis sigmoid diverticulosis. No recurrent polyps Procedure Performed colonoscopy to cecum Description of Procedure Anesthesia Type: Conscious Sedation Specimen(s) collected/removed None Description of the Procedure Indication for the procedure: This gentleman came in for surveillance colonoscopy, having had adenomatous polyps in the past. Informed consent was obtained after reviewing the procedure in detail. Description of the procedure: He was placed in left lateral decubitus position and his vital signs were monitored. Conscious sedation was achieved using Versed and fentanyl. Digital rectal examination was unremarkable. The colonoscope was then introduced into the rectum and advanced all the way up to the cecum. The scope was then withdrawn slowly and the mucosa examined in a systematic fashion. Findings: Sigmoid diverticulosis. No recurrent polyps were found. He tolerated the procedure well and was taken back to the nursing area in a stable condition. Impression: Surveillance colonoscopy. No recurrent polyps. Recommend repeating in 5 years. Copy Copies To 1: MARCO MURRIETA XAVIER M MD Jun 29, 2018 09:20
--- NOTE | 2018-06-29 09:21 | Discharge Inst-Simple/Standard ---
Discharge Inst-Standard Discharge Medications New, Converted or Re-Newed RX: Other Patient Instructions/Follow Up Plan of Care/Instructions/FU: repeat colonoscopy in 5 years Activity as Tolerated: Yes Discharge Diet: No Restrictions NISHA NOBLE MD Jun 29, 2018 09:21
[2018-06-29 09:35] VITALS: BP 159/88
[2018-06-29 10:00] VITALS: BP 159/88
== END 2018-06-29 10:00 | disposition home or self-care (01) ==
LOC: ENDO 06:59
PROVIDERS: ATTEND Surgery
DX: Z12.11 Encounter for screening for malignant neoplasm of colon (principal); K57.30 Diverticulosis of large intestine without perforation or abscess without bleeding; Z86.010 Personal history of colon polyps; Z79.82 Long term (current) use of aspirin; Z79.899 Other long term (current) drug therapy; E78.00 Pure hypercholesterolemia, unspecified; I10 Essential (primary) hypertension; K21.9 Gastro-esophageal reflux disease without esophagitis

== ENCOUNTER 2018-08-03 20:12 | Emergency (ER) | payer MEDICARE ==
[~2018-08-03] VITALS: Ht 182.9 cm; Wt 113.4 kg
[2018-08-03] MEDS ORDERED: LACTATED RINGERS 1,000 ML IV ONE (20:38)
--- NOTE | 2018-08-03 20:49 | ED Syncope ---
General Chief Complaint: Dizziness/Syncope Stated Complaint: SYNCOPAL EPISODE Nursing Triage Note: PT PRESENTS FROM HOME, STATES HE WAS ADVISED BY HIS THAT HE WAS SEATED EATING DINNER WHEN HIS EYES ROLLED IN THE BACK OF HIS HEAD AND HE BECAME UNRESPONSIVE. STATES HE CAME TO AFTER THE ELASPED TIME AND WAS SPEAKING CLEARLY, PT REMEMBERS NOTHING OF THE EVENT, PT DID NOT STRIKE HIS HEAD PER . Source of Information: Patient, Spouse History of Present Illness Date Seen by Provider: Aug 03, 2018 Time Seen by Provider: 20:20 Initial Comments PT ARRIVES VIA POV FROM HOME WITH PT WAS SITTING AT TABLE EATING SUPPER AND TALKING AND HE SUDDENLY PASSED OUT-- OCCURRED AT 1930 TONIGHT REPORTS THAT HE PASSED OUT FOR ABOUT 15 SECONDS--NO CHOKING OR DIFFICULTY BREATHING, BUT SHE GAVE HEIMLICH MANEUVER TO SEE IF IT WOULD HELP--PT QUICKLY CAME TO, BUT DID NOT COUGH, ETC WHEN HE CAME TO NO INJURY AND DID NOT FALL OUT OF CHAIR. NO SEIZURE ACTIVITY NO INCONTINENCE NO POST-ICTAL SYMPTOMS WAS QUICKLY BACK TO NORMAL AFTER A MINUTE OR SO PT WAS VERY SWEATY, BUT OTHER THAN THAT HE HAD NO OTHER SYMPTOMS STATES HE WAS FEELING FINE RIGHT BEFORE AND FEELS FINE NOW, EXCEPT FOR FEELING A LITTLE ANXIOUS. HAS NO RECOLLECTION OF EVENT HAS NEVER OCCURRED BEFORE. NO CHEST PAIN NO SHORTNESS OF BREATH NO PALPITATIONS NO NAUSEA/VOMITING/DIARRHEA--HAD NORMAL BM THIS AM. NO BLACK/BLOODY/TARRY STOOLS. 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 STATES HE HAS BEEN FATIGUED THIS WEEK WITH THE INCREASE IN ACTIVITY DID NOT HAVE ANY SYMPTOMS WITH THOSE ACTIVITIES PT HAD ROUTINE COLONOSCOPY 06/29/18--NORMAL EXCEPT FOR DIVERTICULAR DISEASE. NO BIOPSIES DONE. 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 NOBLE Allergies and Home Medications Allergies Coded Allergies: No Known Drug Allergies (Unverified , 06/22/18) Home Medications Aspirin 81 Mg Tablet.dr, 81 MG PO DAILY, (Reported) Esomeprazole Magnesium 40 Mg Cap, 40 MG PO DAILY, (Reported) Ginkgo Biloba Extract 120 Mg Capsule, 120 MG PO BID, (Reported) Levothyroxine Sodium 100 Mcg Tablet, 100 MCG PO DAILY, (Reported) Lisinopril 20 Mg Tablet, 20 MG PO DAILY, (Reported) Loratadine 10 Mg Tablet, 10 MG PO DAILY, (Reported) Rosuvastatin Calcium 10 Mg Tablet, 10 MG PO DAILY, (Reported) Ubidecarenone 30 Mg Capsule, 30 MG PO DAILY, (Reported) Patient Home Medication List Home Medication List Reviewed: Yes Review of Systems Constitutional: see HPI, diaphoresis EENTM: no symptoms reported; No blurred vision, No double vision Respiratory: no symptoms reported; No cough, No short of breath Cardiovascular: see HPI; No chest pain, No Hx of Intervention, No palpitations ; syncope; No vascular heart diseas Gastrointestinal: see HPI; No abdominal pain, No constipation, No diarrhea, No hematemesis, No melena, No nausea, No vomiting Genitourinary: no symptoms reported Musculoskeletal: no symptoms reported Skin: no symptoms reported Psychiatric/Neurological: See HPI; Denies Headache, Denies Numbness, Denies Paresthesia, Denies Seizure, Denies Tingling, Denies Tremors, Denies Weakness Past Rrszpwg-Kfojsi-Artefc Hx Patient Social History Alcohol Use: Regular Use (ONE GLASS OF WINE WITH DINNER) Alcohol Beverage of Choice: Wine Recreational Drug Use: No Smoking Status: Never a Smoker Recent Foreign Travel: No Contact w/Someone Who Travel: No Recent Infectious Disease Expo: No Recent Hopitalizations: No Immunizations Up To Date Date of Pneumonia Vaccine: Nov 10, 2015 Date of Influenza Vaccine: Feb 02, 2018 Seasonal Allergies Seasonal Allergies: Yes Past Medical History Surgeries: Yes (COLON RESECTION FOR POLYPS; REVISON OF ANASTAMOSIS; MULTPLE ANAL SPHINCTER DILATIONS; MULTIPLE COLONOSCOPIES / POLYPECTOMIES; EGD'S; LEFT INGUINAL HERNIA 2015L VENTRAL HERNIA 2011) Abdominal, Bowel Surgery Respiratory: No Cardiac: Yes High Cholesterol, Hypertension Neurological: No Reproductive Disorders: No Sexually Transmitted Disease: No HIV/AIDS: No Genitourinary: No Gastrointestinal: Yes (COLON RESECTION FOR ADENOMATOUS POLYPS; ANAL SPHINCTER STRICTURE; DIVERTICULAR DISEASE NOTED ON COLONOSOCPIES; ) Gastroesophageal Reflux, Diverticulosis, Polyps Musculoskeletal: No Endocrine: Yes Hypothyroidsim HEENT: Yes (GLASSES) Loss of Vision: Bilateral Hearing Impairment: Denies Cancer: No Psychosocial: No Integumentary: Yes (ROSACEA) Blood Disorders: No Adverse Reaction/Blood Tranf: No (N/A) Physical Exam Vital Signs Vital Signs - First Documented 08/03/18 20:29 Temp 97.6 Pulse 95 Resp 20 B/P (MAP) 145/79 (101) Pulse Ox 96 O2 Delivery Room Air Capillary Refill : Less Than 3 Seconds Height, Weight, BMI Height: 6'0" Weight: 250lbs. 0.0oz. [id number]; 33.9 BMI Method:Stated General Appearance: No Apparent Distress, WD/WN HEENT: PERRL/EOMI Neck: Full Range of Motion, Normal Inspection, Non Tender, Supple; No Carotid Bruit, No JVD Cardiovascular: Regular Rate, Rhythm, No Edema, No Gallop, No JVD, No Murmur, Normal Peripheral Pulses Respiratory: Normal Breath Sounds, No Accessory Muscle Use, No Respiratory Distress Gastrointestinal: Normal Bowel Sounds, No Organomegaly, No Pulsatile Mass, Non Tender, Soft Back: Normal Inspection, No CVA Tenderness Extremities: Normal Capillary Refill, Non Tender, No Calf Tenderness, No Pedal Edema, Other (SOME PAIN/LIMITED ROM OF LEFT SHOULDER--STATES HE HAS BEEN HAVING ONGOING PROBLEMS WITH LEFT SHOULDER AND IS NOT DIFFERENT TODAY ) Neurologic/Psychiatric: Alert, Oriented x3, No Motor/Sensory Deficits, Normal Mood/Affect, serologist II-XII Norm as Tested; No Abnormal Cerebellar Tests Cranial Nerves: Normal Hearing, Normal Speech, PERRL Coordination/Gait: Normal Finger to Nose, Normal Gait, Negative Romberg's Sign Motor/Sensory: No Motor Deficit, No Sensory Deficit, No Pronator Drift Skin: Normal Color, Warm/Dry; No Rash Progress/Results/Core Measures Results/Orders Lab Results Laboratory Tests Test 08/03/18 20:50 08/03/18 20:58 Range/Units White Blood Count 11.2 H 4.3-11.0 10^3/uL Red Blood Count 4.04 L 4.35-5.85 10^6/uL Hemoglobin 13.0 L 13.3-17.7 G/DL Hematocrit 37 L 40-54 % Mean Corpuscular Volume 91 80-99 FL Mean Corpuscular Hemoglobin 32 25-34 PG Mean Corpuscular Hemoglobin Concent 35 32-36 G/DL Red Cell Distribution Width 12.4 10.0-14.5 % Platelet Count 208 130-400 10^3/uL Mean Platelet Volume 9.4 7.4-10.4 FL Neutrophils (%) (Auto) 87 H 42-75 % Lymphocytes (%) (Auto) 5 L 12-44 % Monocytes (%) (Auto) 7 0-12 % Eosinophils (%) (Auto) 1 0-10 % Basophils (%) (Auto) 0 0-10 % Neutrophils # (Auto) 9.8 H 1.8-7.8 X 10^3 Lymphocytes # (Auto) 0.6 L 1.0-4.0 X 10^3 Monocytes # (Auto) 0.8 0.0-1.0 X 10^3 Eosinophils # (Auto) 0.1 0.0-0.3 10^3/uL Basophils # (Auto) 0.0 0.0-0.1 10^3/uL Prothrombin Time 13.3 12.2-14.7 SEC INR Comment 1.0 0.8-1.4 Activated Partial Thromboplast Time 28 24-35 SEC Sodium Level 127 L 135-145 MMOL/L Potassium Level 4.3 3.6-5.0 MMOL/L Chloride Level 97 L 98-107 MMOL/L Carbon Dioxide Level 18 L 21-32 MMOL/L Anion Gap 12 5-14 MMOL/L Blood Urea Nitrogen 21 H 7-18 MG/DL Creatinine 1.08 0.60-1.30 MG/DL Estimat Glomerular Filtration Rate > 60 BUN/Creatinine Ratio 19 Glucose Level 109 H 70-105 MG/DL Calcium Level 9.5 8.5-10.1 MG/DL Corrected Calcium 9.3 8.5-10.1 MG/DL Magnesium Level 2.0 1.8-2.4 MG/DL Total Bilirubin 0.8 0.1-1.0 MG/DL Aspartate Amino Transf (AST/SGOT) 24 5-34 U/L Alanine Aminotransferase (ALT/SGPT) 17 0-55 U/L Alkaline Phosphatase 94 40-136 U/L Total Creatine Kinase 168 30-200 U/L Creatine Kinase MB 4.8 <6.6 NG/ML Troponin I < 0.028 <0.028 NG/ML Total Protein 7.1 6.4-8.2 GM/DL Albumin 4.3 3.2-4.5 GM/DL TSH [place] Testing 3.82 0.35-4.94 UIU/ML Urine Color YELLOW Urine Clarity SLIGHTLY CLOUDY Urine pH 5 5-9 Urine Specific [place] 1.030 H 1.016-1.022 Urine Protein 2+ H NEGATIVE Urine Glucose (UA) NEGATIVE NEGATIVE Urine Ketones 1+ H NEGATIVE Urine Nitrite NEGATIVE NEGATIVE Urine Bilirubin NEGATIVE NEGATIVE Urine Urobilinogen NORMAL NORMAL MG/DL Urine Leukocyte Esterase 1+ H NEGATIVE Urine RBC (Auto) 1+ H NEGATIVE Urine RBC 0-2 /HPF Urine WBC 0-2 /HPF Urine Squamous Epithelial Cells RARE /HPF Urine Crystals NONE /LPF Urine Bacteria TRACE /HPF Urine Casts PRESENT /LPF Urine Hyaline Casts 5-10 H /LPF Urine Mucus MODERATE H /LPF Urine Culture Indicated NO My Orders Orders - JESSE GROVER DO Ct Head Wo-R/O Stroke (08/03/18 20:38) Saline Lock/Iv-Start (08/03/18 20:38) Chest 1 View, Ap/Pa Only (08/03/18 20:38) Cbc With Automated Diff (08/03/18 20:38) Comprehensive Metabolic Panel (08/03/18 20:38) Creatine Kinase (08/03/18 20:38) Creatine Kinase Mb (08/03/18 20:38) Magnesium (08/03/18 20:38) Protime With Inr (08/03/18 20:38) Partial Thromboplastin Time (08/03/18 20:38) Thyroid Analyzer (08/03/18 20:38) Troponin I (08/03/18 20:38) Ua Culture If Indicated (08/03/18 20:38) Accucheck Stat ONCE (08/03/18 20:38) Saline Lock/Iv-Start (08/03/18 20:38) Lactated Ringers (Lr 1000 Ml Iv Solution (08/03/18 20:38) Ekg Tracing (08/03/18 20:38) Monitor-Rhythm Ecg Trace Only (08/03/18 20:38) Orthostatic Vital Signs (Adult (08/03/18 20:38) Saline Lock/Iv-Start (08/03/18 21:23) Ns Iv 1000 Ml (Sodium Chloride 0.9%) (08/03/18 21:23) Ct [place] Chest/Noang Abd-Pelv W (08/03/18 21:44) Iohexol Injection (Omnipaque 350 Mg/Ml 1 (08/03/18 22:15) Received Contrast (Hold Metformin- Contr (08/03/18 22:15) Medications Given in ED Current Medications Medications Dose Ordered Sig/Jaycee Route Start Time Stop Time Status Last Admin Dose Admin Iohexol 150 ml ONCE ONCE IV 08/03/18 22:15 08/03/18 22:16 DC 08/03/18 22:18 125 ML Lactated Ringer's 1,000 ml @ 0 mls/hr Q0M ONCE IV 08/03/18 20:38 08/03/18 20:41 DC 08/03/18 20:53 0 MLS/HR Sodium Chloride 1,000 ml @ 0 mls/hr Q0M ONCE IV 08/03/18 21:23 08/03/18 21:24 DC 08/03/18 21:44 0 MLS/HR Vital Signs/I&O 08/03/18 08/03/18 08/03/18 08/03/18 20:29 21:03 21:10 23:32 Temp 97.6 Pulse 95 94 94 82 96 97 Resp 20 20 B/P (MAP) 145/79 (101) 124/76 (92) 124/76 (92) 141/79 (99) 137/76 (96) 134/78 (96) Pulse Ox 96 99 O2 Delivery Room Air 08/04/18 00:00 Intake Total 2000 ml Balance 2000 ml Blood Pressure Mean: 101 Progress Progress Note : Progress Note ASYMPTOMATIC DURING ENTIRE ER STAY PT FEELS COMFORTABLE GOING HOME ADVISED TO RETURN TO ER IF SYMPTOMS RECUR Initial ECG Impression Date: Aug 03, 2018 Initial ECG Impression Time: 20:44 Initial ECG Rate: 92 Initial ECG Rhythm: Normal Sinus Initial ECG Comparisson: No Previous ECG Available Diagnostic Imaging Comments CXR--ROUND DENSITY LEFT RETROCARDIAC AREA--RECOMMEND CT SCAN CT HEAD--CHRONIC CHANGES,, NO ACUTE PROCESS PER RADIOLOGIST REPORTS @ 2147 CT CHEST ANGIOGRAM/ ABDOMEN-PELVIS--NO P.E. OR AORTIC DISSECTION; POSSIBLE MILD PULMONARY INFILTRATES VS HYPOVENTILATION OR MOTION ARTIFACT; MILD ESOPHAGEAL THICKENING -MAY BE UNDERDISTENTION OR ESOPHAGITIS; SMALL PANCREATIC CYST; HEPATIC CYSTS; MILD DIFFUSE COLONIC THICKENING WHICH MAY BE UNDERDISTENTION VS COLITIS; LEFT ARCHANA-DIAPHRAGMATIC FAT HERNIA--PER [facility] VIA FAX AT [id number] Reviewed: Reviewed by Me Departure Impression Primary Impression: Episode of syncope Additional Impressions: Dehydration Electrolyte imbalance Hyponatremia Disposition: HOME, SELF-CARE Condition: Improved Departure-Patient Inst. Referrals: [facility] (PCP) Primary Care Physician ERICKA LEMA (Family) Primary Care Physician Patient Instructions: Syncope (Fainting) (DC), Hyponatremia (DC), Dehydration, Adult (DC) Add. Discharge Instructions: DRINK EQUAL AMOUNTS OF WATER AND GATORADE--DRINK ENOUGH SO YOU ARE URINATING EVERY 2 HOURS WHILE AWAKE TAKE YOUR REGULAR MEDICATIONS PRESCRIBED FOLLOW UP WITH [facility] TOMORROW FOR FURTHER CARE RETURN TO ER IF SYMPTOMS RETURN NO DRIVING UNTIL YOU ARE CLEARED BY YOUR DR. All discharge instructions reviewed with patient and/or family. Voiced understanding. JESSE GROVER DO Aug 03, 2018 20:49
[2018-08-03 20:59] LABS: BASOPHILS % (AUTO) 0 % (0-10); EOSINOPHILS # (AUTO) 0.1 10^3/uL (0.0-0.3); EOSINOPHILS % (AUTO) 1 % (0-10); HEMATOCRIT 37 % (40-54); LYMPHOCYTES # (AUTO) 0.6 X 10^3 (1.0-4.0); LYMPHOCYTES % (AUTO) 5 % (12-44); MEAN CORPUSCULAR HEMOGLOBIN 32 PG (25-34); MEAN CORPUSCULAR HGB CONC 35 G/DL (32-36); MEAN CORPUSCULAR VOLUME 91 FL (80-99); MEAN PLATELET VOLUME 9.4 FL (7.4-10.4); MONOCYTES # (AUTO) 0.8 X 10^3 (0.0-1.0); MONOCYTES % (AUTO) 7 % (0-12); NEUTROPHILS # (AUTO) 9.8 X 10^3 (1.8-7.8); NEUTROPHILS % (AUTO) 87 % (42-75); PLATELET COUNT 208 10^3/uL (130-400); RED CELL DISTRIBUTION WIDTH 12.4 % (10.0-14.5); WHITE BLOOD COUNT 11.2 10^3/uL (4.3-11.0)
[2018-08-03 21:03] VITALS: BP 124/76
[2018-08-03 21:04] LABS: BILIRUBIN,URINE NEGATIVE (NEGATIVE); CLARITY,URINE SLIGHTLY CLOUDY; GLUCOSE, URINE (UA) NEGATIVE (NEGATIVE); KETONES,URINE 1+ (NEGATIVE); LEUKOCYTE ESTERASE ,URINE 1+ (NEGATIVE); NITRITE,URINE NEGATIVE (NEGATIVE); PH,URINE 5 (5-9); PROTEIN,URINE 2+ (NEGATIVE); UROBILINOGEN,URINE NORMAL (NORMAL)
--- NOTE | 2018-08-03 21:08 | Diagnostic Imaging Report ---
INDICATION: Patient became unresponsive at home. Patient does not remember any of this. FINDINGS: Frontal view of the chest demonstrates round density over the medial aspect of the left diaphragm posterior to the heart. A CT scan or lateral view of the chest would be helpful for further evaluation of this. Lungs are otherwise clear. The heart and vascularity are normal. IMPRESSION: There is a rounded density over the medial aspect of the left diaphragm. Recommend lateral chest radiograph or CT scan for further evaluation of this. Dictated by: Dictated on workstation # [id number]
[2018-08-03 21:10] VITALS: BP_SYST 124; BP_SYST 134; BP_SYST 137; BP_DIAS 76; BP_DIAS 78
[2018-08-03 21:11] LABS: PROTHROMBIN TIME PATIENT 13.3 SEC (12.2-14.7)
[2018-08-03 21:14] LABS: COLOR,URINE YELLOW; RBC,URINE 0-2 /HPF
[2018-08-03 21:15] LABS: BACTERIA,URINE TRACE /HPF; SQUAMOUS EPITHELIAL CELL,UR RARE /HPF; WBC,URINE 0-2 /HPF
[2018-08-03 21:18] LABS: ALANINE AMINOTRANSFERASE 17 U/L (0-55); ALBUMIN 4.3 GM/DL (3.2-4.5); ALKALINE PHOSPHATASE 94 U/L (40-136); BILIRUBIN,TOTAL 0.8 MG/DL (0.1-1.0); BUN/CREATININE RATIO 19; CALCIUM 9.5 MG/DL (8.5-10.1); CARBON DIOXIDE 18 MMOL/L (21-32); CHLORIDE 97 MMOL/L (98-107); CREATINE KINASE 168 U/L (30-200); CREATININE SERUM 1.08 MG/DL (0.60-1.30); GFR ESTIMATED > 60; GLUCOSE 109 MG/DL (70-105); POTASSIUM 4.3 MMOL/L (3.6-5.0); SODIUM 127 MMOL/L (135-145); TOTAL PROTEIN 7.1 GM/DL (6.4-8.2)
[2018-08-03] MEDS ORDERED: NS IV 1000 ML 1,000 ML IV ONE (21:23)
--- NOTE | 2018-08-03 21:35 | Diagnostic Imaging Report ---
PROCEDURE: CT head wo r/o stroke. TECHNIQUE: Multiple contiguous axial images were obtained through the brain without the use of intravenous contrast. Auto Exposure Controls were utilized during the CT exam to meet ALARA standards for radiation dose reduction. INDICATION: Patient's eyes rolled back in his head and became unresponsive. Patient does not remember any of this. FINDINGS: Noncontrast CT scanning of the head demonstrates mild atrophy. A benign calcification is seen along the sulci in the right parietal lobe. Mild white matter changes are present. There is no mass effect, midline shift, hemorrhage, or extra-axial fluid collections. Mild opacification is seen in the right anterior ethmoid air cells. IMPRESSION: 1. There is no evidence of acute trauma. 2. Mild atrophy and small vessel disease is present. 3. There is a benign-appearing calcification along deep right parietal sulci. Dictated by: Dictated on workstation # [id number]
[2018-08-03 21:37] LABS: CREATINE KINASE MB 4.8 NG/ML (<6.6); TSH (THYROID ANALYZER) 3.82 UIU/ML (0.35-4.94)
[2018-08-03] MEDS ORDERED: IOHEXOL 350 MG/ML 150 ML (OMNIPAQUE 350) VIAL IV ONE (22:15)
[2018-08-03] MEDS ORDERED: HOLD METFORMIN - RECEIVED CONTRAST 20 ML VIAL IV SCH (22:15)
[2018-08-03 23:32] VITALS: BP 141/79
--- NOTE | 2018-08-04 08:16 | Diagnostic Imaging Report ---
CT REGLA CHEST/NOANG ABD-PELV W Technique: Postcontrast imaging of the chest, abdomen and pelvis was performed. In the chest, MIP reformats are created and submitted. MPR reformats of the abdomen and pelvis were created. Indication: Chest and abdominal pain. Unresponsive. Comparison: CT abdomen and pelvis of 03/17/2007 Findings: CTA chest: No central pulmonary emboli. There is suboptimal opacification of the segmental and subsegmental pulmonary arteries due to poor bolus contrast timing. No CT features of right ventricular strain or pulmonary hypertension. Normal caliber thoracic aorta without dissection or pseudoaneurysm. No pleural effusion or pneumothorax. Subcentimeter nodule within the thyroid is likely of no clinical significance. No axillary or supraclavicular lymphadenopathy. No mediastinal, hilar or juxtaphrenic lymphadenopathy. No endoluminal nodule within the trachea. Subpleural reticulations in the lung apices are noted. This may relate to apical subpleural scarring. No concerning pulmonary nodules. No focal osseous lesion in the chest. CT abdomen and pelvis with contrast: No free intraperitoneal air or fluid. There are multiple low-attenuation nonenhancing cysts throughout the liver increased in size since 2006. One of these has a subcapsular position along the posterior right hepatic lobe. No solid enhancing hepatic lesion. The spleen and adrenals are normal. There is a 1.4 x 1.6 cm cystic nodule in the mid pancreatic body which was not present on prior examination. No solid enhancing pancreatic lesion. There are likely vascular calcifications at the level of the renal gavino. No solid renal mass or obstructive uropathy. Urinary bladder is normal. Prostate is not enlarged. Surgical changes of partial colon resection at the rectosigmoid colon. There is anastomotic staple line present. No bowel obstruction. Stomach is filled with fluid and food debris and there is no wall thickening. No abdominal or pelvic lymphadenopathy. Atherosclerotic aorta. No worrisome focal osseous lesions. Impression: CTA chest: 1. No central pulmonary emboli or aortic dissection. 2. Lungs are clear. Respiratory motion artifact accounts for the questioned infiltrate on preliminary report as this was not present on the CT abdomen and pelvis. 3. Questioned mild wall thickening of the esophagus could relate to under distention. 4. Findings are in agreement with the preliminary report. CT abdomen and pelvis: 1. No acute obstructive or inflammatory process in the abdomen or pelvis. 2. Postoperative changes in the colon. There is no significant wall thickening or surrounding inflammatory changes to indicate colitis. 3. Findings are in general agreement with the preliminary report. Dictated by: Dictated on workstation # [id number]
== END 2018-08-03 23:31 | disposition home or self-care (01) ==
LOC: EDUNIT# 20:12 → ER 20:13
DX: R55 Syncope and collapse (principal); E86.0 Dehydration; E87.8 Other disorders of electrolyte and fluid balance, not elsewhere classified; E87.1 Hypo-osmolality and hyponatremia; E78.00 Pure hypercholesterolemia, unspecified; I10 Essential (primary) hypertension; K21.9 Gastro-esophageal reflux disease without esophagitis; E03.9 Hypothyroidism, unspecified; Z87.19 Personal history of other diseases of the digestive system; Z79.82 Long term (current) use of aspirin; Z90.49 Acquired absence of other specified parts of digestive tract; Z86.010 Personal history of colon polyps; Z98.890 Other specified postprocedural states
CPT/HCPCS: 36415; 70450; 71045; 71275; 74177; 80053; 81000; 82550; 82553; 83735; 84443; 84484; 85025; 85610; 85730; 93005; 93041